=== PATIENT | female | born 1965 | race Caucasian/White ===

== ENCOUNTER → 2018-09-21 | Day surgery (SDC) | payer OTHER ==
--- NOTE | 2018-09-25 11:09 | PATH ---
Surgical Pathology Report Patient Name: MERE ANGUIANO [facility]. Rec. #: [id number] /Age/Gender: 1965 (Age: 52) / F Account: [id number] Location: [facility] Taken: 09/21/2018 Received: 09/21/2018 Reported: 09/25/2018 Physicians: Reese Sierra M.D. Specimen(s) Received A: RIGHT BREAST SPECIMEN WITH CALCIFICATIONS B: RIGHT BREAST SPECIMEN WITHOUT CALCIFICATIONS Clinical History Nonpalpable lesion Mammographic findings: Microcalcification, suspicious Final Diagnosis A. BREAST, RIGHT, WITH CALCIFICATIONS, STEREOTACTIC BIOPSY: BENIGN PREDOMINANTLY FATTY BREAST TISSUE SHOWING FAT NECROSIS AND DENSE FIBROSIS WITH ASSOCIATED CALCIFICATIONS. B. . BREAST, RIGHT, WITHOUT CALCIFICATIONS, STEREOTACTIC BIOPSY: BENIGN PREDOMINANTLY FATTY BREAST TISSUE SHOWING FAT NECROSIS AND DENSE FIBROSIS WITH ASSOCIATED CALCIFICATIONS. Electronically Signed Alize Israel M.D. Gross Description A. Received in formalin labeled "right breast with calcifications," are 8 garcia-yellow, cylindrical portions of fibroadipose tissue ranging from 1.3-3.2 cm in length and averaging 0.2 cm in diameter. The specimens are submitted in toto in 2 cassettes. B. Received in formalin labeled "right breast without calcifications," are 6 garcia-yellow, cylindrical portions of fibroadipose tissue ranging from 1.3-3.0 cm in length and averaging 0.2 cm in diameter. The specimens are submitted in toto in 2 cassettes. Time to formalin fixation: 5 minutes Total formalin fixation time: Approximately 7 hours. 09/21/2018 [facility]09/21/2018
== END | disposition home or self-care (01) ==
LOC: FMAMMOTONE 10:12
PROVIDERS: ATTEND Surgery Surgical Oncology
PROC: 0HBT3ZX Excision of Right Breast, Percutaneous Approach, Diagnostic (ICD-10-PCS; principal; 2018-09-21)
DX: N60.31 Fibrosclerosis of right breast (principal); Z85.3 Personal history of malignant neoplasm of breast
CPT/HCPCS: 19081; 87899; 88305-TC; A4648